=== PATIENT | male | born 1985 | race Caucasian/White ===

== ENCOUNTER 2016-07-14 21:12 | Inpatient (IN) | payer MEDICAID, OTHER ==
[~2016-07-14] VITALS: Ht 172.7 cm; Wt 75.6 kg
[~2016-07-14 21:12] MED LIST: DIVA500T52 PO; QUET50XR PO
[2016-07-14] MEDS ORDERED: OLANZapine 5 MG RAPDIS TABLET PO PRN (21:30)
[2016-07-14 21:59] VITALS: BP 120/67
[2016-07-14] MEDS ORDERED: INFLUENZA VIRUS VACCINE QVS 2016-17 (3YR+)/PF 60 MCG/0.5 ML SYRINGE IM ONE (22:00)
[2016-07-14] MEDS ORDERED: -PHARMACY VACCINE NOTE- MISC ONE ×2 (22:00)
[2016-07-14 22:07] VITALS: BP 106/62
[2016-07-14] MEDS: LORazepam 2 MG TABLET PO PRN (22:35)
[2016-07-14] MEDS: ZOLPIDEM TARTRATE 10 MG TABLET PO PRN (22:35)
[2016-07-15 07:19] VITALS: BP 120/67
[2016-07-15 08:03] VITALS: BP 105/60
[2016-07-15 08:20] LABS: BASOPHILS % (AUTO) 0.4 % (0.0-2.0); EOSINOPHILS % (AUTO) 1.5 % (1.0-6.0); HEMATOCRIT 38.2 % (41-53); HEMOGLOBIN 13.4 g/dL (13.5-17.5); LYMPHOCYTES # (AUTO) 2.7 K/uL (1.0-4.8); LYMPHOCYTES % (AUTO) 42.9 % (22.0-44.0); MEAN CORPUSCULAR HEMOGLOBIN 30.7 pg (26.0-34.0); MEAN CORPUSCULAR HGB CONC 35.2 G/dL (31.0-37.0); MEAN CORPUSCULAR VOLUME 87 fL (80-100); MONOCYTES # (AUTO) 0.7 K/uL (0.1-1.0); MONOCYTES % (AUTO) 10.6 % (2.0-9.0); NEUTROPHILS # (AUTO) 2.8 K/uL (1.8-7.7); NEUTROPHILS % (AUTO) 44.6 % (40.0-70.0); PLATELET COUNT (AUTO) 202 K/uL (150-450); RED BLOOD CELL COUNT(AUTO) 4.38 MIL/uL (4.50-5.90); RED CELL DISTRIBUTION WIDTH 12.9 % (11.5-14.5); WHITE BLOOD COUNT (AUTO) 6.3 K/uL (4.5-11.0)
[2016-07-15] MEDS: BENZTROPINE MESYLATE 2 MG TABLET PO SCH ×2 (08:50→17:14)
[2016-07-15] MEDS: LORazepam 2 MG TABLET PO PRN ×2 (08:50→17:14)
[2016-07-15] MEDS: DIVALPROEX SODIUM 500 MG ER TABLET PO SCH ×2 (08:50→17:14)
[2016-07-15 09:16] LABS: ALANINE AMINOTRANSFERASE 39 U/L (12-78); ALBUMIN 3.2 g/dL (3.4-5.0); ANION GAP 6 mmol/L (8-16); ASPARTATE AMINOTRANSFERASE 17 U/L (15-37); BILIRUBIN,TOTAL 0.4 mg/dL (0.1-1.0); CALCIUM, TOTAL 8.6 mg/dL (8.8-10.5); CARBON DIOXIDE 30 mmol/L (22-29); CHLORIDE 105 mmol/L (98-107); CHOL/HDL RATIO 2.9 (4.2-7.3); CREATININE 0.76 mg/dL (0.60-1.30); GLOMERULAR FILTR. RATE CALC > 60 mL/min (>60); POTASSIUM 3.8 mmol/L (3.5-5.1); SODIUM SERUM 141 mmol/L (136-145); THYROID STIMULATING HORMONE 2.66 uIU/mL (0.36-3.74); TOTAL PROTEIN, SERUM 6.6 g/dL (6.4-8.2); UREA NITROGEN, BLOOD 10 mg/dL (7-18)
[2016-07-15] MEDS ORDERED: ACETAMINOPHEN 325 MG TABLET PO PRN (13:15)
[2016-07-15] MEDS ORDERED: TUBERCULIN, PURIFIED PROTEIN DERIVATIVE 5 TU/0.1 ML SYG ID ONE (13:15)
[2016-07-15] MEDS ORDERED: GuaiFENesin/D-METHORPHAN [SUGAR-FREE] 200-20MG/10 ML SYRUP UDCUP PO PRN (13:15)
[2016-07-15] MEDS ORDERED: HydrOXYzine PAMOATE 50 MG CAPSULE PO PRN (13:15)
[2016-07-15] MEDS ORDERED: PROMETHAZINE HCL 25 MG TABLET PO PRN (13:15)
[2016-07-15] MEDS ORDERED: MAG HYDROX/AL HYDROX/SIMETH ES 30 ML SUSPENSION UDCUP PO PRN (13:15)
[2016-07-15] MEDS ORDERED: LOPERAMIDE HCL 2 MG CAPSULE PO PRN (13:15)
[2016-07-15] MEDS ORDERED: MAGNESIUM HYDROXIDE SUSPENSION 30 ML UDCUP PO PRN (13:15)
[2016-07-15 16:07] VITALS: BP 122/73
[2016-07-15] MEDS: THIAMINE HCL 100 MG TABLET PO SCH (17:14)
[2016-07-15] MEDS: OLANZapine 10 MG TABLET PO SCH (20:22)
[2016-07-15] MEDS: ZOLPIDEM TARTRATE 10 MG TABLET PO PRN (20:22)
[2016-07-16 00:36] VITALS: BP 103/60
[2016-07-16 08:03] VITALS: BP 116/66
[2016-07-16] MEDS: NALTREXONE HCL 50 MG TABLET PO SCH (08:37)
[2016-07-16] MEDS: THIAMINE HCL 100 MG TABLET PO SCH ×2 (08:37→17:09)
[2016-07-16] MEDS: BENZTROPINE MESYLATE 2 MG TABLET PO SCH ×2 (08:37→17:09)
[2016-07-16] MEDS: FOLIC ACID 1 MG TABLET PO SCH (08:37)
[2016-07-16] MEDS: DIVALPROEX SODIUM 500 MG ER TABLET PO SCH ×2 (08:37→17:09)
[2016-07-16] MEDS: MULTIVITAMINS WITH MINERALS, THERAPEUTIC TABLET PO SCH (08:37)
[2016-07-16] MEDS ORDERED: BENZ2TAB10 PO (11:17)
[2016-07-16] MEDS ORDERED: DIVA500T69 PO (11:17)
[2016-07-16] MEDS ORDERED: NALT50 PO (11:17)
[2016-07-16] MEDS ORDERED: OLAN10TA20 PO (11:17)
[2016-07-16 16:06] VITALS: BP 112/70
[2016-07-16] MEDS: LORazepam 2 MG TABLET PO PRN (17:09)
[2016-07-16] MEDS: ZOLPIDEM TARTRATE 10 MG TABLET PO PRN (20:34)
[2016-07-16] MEDS: OLANZapine 10 MG TABLET PO SCH (20:34)
[2016-07-17 00:10] VITALS: BP 119/75
[2016-07-17] MEDS: LORazepam 2 MG TABLET PO PRN (00:11)
[2016-07-17 08:04] VITALS: BP 124/73
[2016-07-17] MEDS: FOLIC ACID 1 MG TABLET PO SCH (08:40)
[2016-07-17] MEDS: BENZTROPINE MESYLATE 2 MG TABLET PO SCH (08:40)
[2016-07-17] MEDS: THIAMINE HCL 100 MG TABLET PO SCH (08:40)
[2016-07-17] MEDS: NALTREXONE HCL 50 MG TABLET PO SCH (08:40)
[2016-07-17] MEDS: DIVALPROEX SODIUM 500 MG ER TABLET PO SCH (08:40)
[2016-07-17] MEDS: MULTIVITAMINS WITH MINERALS, THERAPEUTIC TABLET PO SCH (08:40)
== END 2016-07-17 15:00 | disposition home or self-care (01) | DRG 750 ==
LOC: B3A 21:34 → EDSTATUS 21:47 → B3A 22:08
PROVIDERS: ADMIT Psychiatry & Neurology Psychiatry; ATTEND Psychiatry & Neurology Psychiatry
PROC: 3E0234Z Introduction of Serum, Toxoid and Vaccine into Muscle, Percutaneous Approach (ICD-10-PCS; principal; 2016-07-15)
DX: F20.0 Paranoid schizophrenia (principal); R45.851 Suicidal ideations; J44.9 Chronic obstructive pulmonary disease, unspecified; I10 Essential (primary) hypertension; D64.9 Anemia, unspecified; F17.210 Nicotine dependence, cigarettes, uncomplicated; F15.90 Other stimulant use, unspecified, uncomplicated; Z90.49 Acquired absence of other specified parts of digestive tract; Z79.899 Other long term (current) drug therapy; Z91.19 Patient's noncompliance with other medical treatment and regimen; Z23 Encounter for immunization
CPT/HCPCS: 83036; 84439; 84443; 87081; 90471

== ENCOUNTER 2016-11-24 20:10 | Inpatient (IN) | payer MEDICAID ==
[~2016-11-24] VITALS: Ht 172.7 cm; Wt 69.2 kg
[~2016-11-24 20:10] MED LIST changes: +BENZ2TAB10 PO; -DIVA500T52 PO; +DIVA500T69 PO; +NALT50 PO; +OLAN10TA20 PO; -QUET50XR PO
[2016-11-24 20:54] LABS: BASOPHILS % (AUTO) 0.3 % (0.0-2.0); EOSINOPHILS % (AUTO) 1.1 % (1.0-6.0); HEMATOCRIT 39.8 % (41-53); HEMOGLOBIN 13.4 g/dL (13.5-17.5); LYMPHOCYTES % (AUTO) 31.8 % (22.0-44.0); MEAN CORPUSCULAR HEMOGLOBIN 29.8 pg (26.0-34.0); MEAN CORPUSCULAR HGB CONC 33.6 G/dL (31.0-37.0); MEAN CORPUSCULAR VOLUME 89 fL (80-100); MONOCYTES # (AUTO) 0.6 K/uL (0.1-1.0); MONOCYTES % (AUTO) 9.2 % (2.0-9.0); NEUTROPHILS # (AUTO) 3.6 K/uL (1.8-7.7); NEUTROPHILS % (AUTO) 57.6 % (40.0-70.0); PLATELET COUNT (AUTO) 199 K/uL (150-450); RED BLOOD CELL COUNT(AUTO) 4.48 MIL/uL (4.50-5.90); RED CELL DISTRIBUTION WIDTH 13.2 % (11.5-14.5); WHITE BLOOD COUNT (AUTO) 6.3 K/uL (4.5-11.0)
[2016-11-24 21:02] LABS: ANION GAP 7 mmol/L (8-16); CALCIUM, TOTAL 8.3 mg/dL (8.8-10.5); CARBON DIOXIDE 26 mmol/L (22-29); CHLORIDE 103 mmol/L (98-107); CREATININE 0.85 mg/dL (0.60-1.30); GLOMERULAR FILTR. RATE CALC > 60 mL/min (>60); POTASSIUM 3.4 mmol/L (3.5-5.1); SODIUM SERUM 136 mmol/L (136-145); UREA NITROGEN, BLOOD 13 mg/dL (7-18)
[2016-11-24 21:08] LABS: ALANINE AMINOTRANSFERASE 27 U/L (12-78); ALBUMIN 3.8 g/dL (3.4-5.0); ASPARTATE AMINOTRANSFERASE 16 U/L (15-37); BILIRUBIN,TOTAL 0.5 mg/dL (0.1-1.0); TOTAL PROTEIN, SERUM 7.2 g/dL (6.4-8.2); VALPROIC ACID 30 mcg/mL (50-100)
[2016-11-24] MEDS ORDERED: HALOPERIDOL 5 MG TABLET PO ONE (21:30)
[2016-11-24] MEDS ORDERED: LORazepam 2 MG TABLET PO ONE (21:30)
[2016-11-25 00:01] VITALS: BP 110/61
[2016-11-25] MEDS: ZOLPIDEM TARTRATE 10 MG TABLET PO PRN ×2 (00:01→19:57)
[2016-11-25] MEDS ORDERED: -PHARMACY VACCINE NOTE- MISC ONE ×2 (00:15)
[2016-11-25] MEDS: HALOPERIDOL 5 MG TABLET PO PRN (08:09)
[2016-11-25] MEDS: LORazepam 2 MG TABLET PO PRN (08:09)
[2016-11-25] MEDS ORDERED: POTASSIUM CHLORIDE 20 MEQ ER TABLET PO ONE (08:30)
[2016-11-25 08:59] VITALS: BP 101/56
[2016-11-25] MEDS: MULTIVITAMINS WITH IRON TABLET PO SCH (09:05)
[2016-11-25] MEDS: NICOTINE 21 MG/24 HOUR PATCH TD SCH (09:05)
[2016-11-25 16:04] VITALS: BP 112/68
[2016-11-25] MEDS: OLANZapine 10 MG TABLET PO SCH (19:58)
[2016-11-26 07:31] VITALS: BP 108/61
[2016-11-26 08:02] VITALS: BP 109/64
[2016-11-26 09:21] LABS: CHOL/HDL RATIO 3.2 (4.2-7.3)
[2016-11-26] MEDS: MULTIVITAMINS WITH IRON TABLET PO SCH (09:34)
[2016-11-26] MEDS: NICOTINE 21 MG/24 HOUR PATCH TD SCH (09:35)
[2016-11-26] MEDS: DIVALPROEX SODIUM 500 MG ER TABLET PO SCH ×2 (09:35→17:05)
[2016-11-26 16:00] VITALS: BP 125/71
[2016-11-26] MEDS: LORazepam 2 MG TABLET PO PRN (19:09)
[2016-11-26] MEDS: HALOPERIDOL 5 MG TABLET PO PRN (19:09)
[2016-11-26] MEDS: ZOLPIDEM TARTRATE 10 MG TABLET PO PRN (20:40)
[2016-11-26] MEDS: OLANZapine 10 MG TABLET PO SCH (20:40)
[2016-11-27 08:31] VITALS: BP 105/67
[2016-11-27] MEDS: MULTIVITAMINS WITH IRON TABLET PO SCH (08:32)
[2016-11-27] MEDS: DIVALPROEX SODIUM 500 MG ER TABLET PO SCH ×2 (08:32→16:17)
[2016-11-27] MEDS: NICOTINE 21 MG/24 HOUR PATCH TD SCH (08:33)
[2016-11-27] MEDS: LORazepam 2 MG TABLET PO PRN (08:34)
[2016-11-27 16:00] VITALS: BP 112/65
== END 2016-11-27 19:20 | disposition home or self-care (01) | DRG 750 ==
LOC: EMS 20:12 → B3A 21:45
PROVIDERS: ADMIT Psychiatry & Neurology Psychiatry; ATTEND Psychiatry & Neurology Psychiatry
DX: F25.9 Schizoaffective disorder, unspecified (principal); R45.850 Homicidal ideations
CPT/HCPCS: 99285; G0480

== ENCOUNTER 2017-09-29 21:00 | Emergency (ER) | payer MEDICAID, OTHER ==
[~2017-09-29] VITALS: Ht 175.3 cm; Wt 77.0 kg
[~2017-09-29 21:00] MED LIST changes: -BENZ2TAB10 PO; -NALT50 PO
[2017-09-29] MEDS ORDERED: BENZ1TAB10 PO (21:38)
[2017-09-29] MEDS ORDERED: PROP10TA73 PO (21:38)
[2017-09-29 21:43] LABS: BASOPHILS % (AUTO) 0.2 % (0.0-2.0); EOSINOPHILS % (AUTO) 2.7 % (1.0-6.0); HEMATOCRIT 40.2 % (41-53); HEMOGLOBIN 14.2 g/dL (13.5-17.5); LYMPHOCYTES # (AUTO) 3.1 K/uL (1.0-4.8); LYMPHOCYTES % (AUTO) 46.6 % (22.0-44.0); MEAN CORPUSCULAR HEMOGLOBIN 30.6 pg (26.0-34.0); MEAN CORPUSCULAR HGB CONC 35.4 G/dL (31.0-37.0); MEAN CORPUSCULAR VOLUME 86 fL (80-100); MONOCYTES # (AUTO) 0.7 K/uL (0.1-1.0); NEUTROPHILS # (AUTO) 2.6 K/uL (1.8-7.7); NEUTROPHILS % (AUTO) 39.5 % (40.0-70.0); PLATELET COUNT (AUTO) 226 K/uL (150-450); RED BLOOD CELL COUNT(AUTO) 4.66 MIL/uL (4.50-5.90); RED CELL DISTRIBUTION WIDTH 13.3 % (11.5-14.5)
[2017-09-29 21:50] LABS: AMPHET/METH SCREEN,URINE NEGATIVE (NEGATIVE); BARBITURATE SCREEN, URINE NEGATIVE (NEGATIVE); BENZODIAZEPINES SCREEN,URINE NEGATIVE (NEGATIVE); CANNABINOID SCREEN,URINE NEGATIVE (NEGATIVE); COCAINE SCREEN,URINE NEGATIVE (NEGATIVE); METHADONE SCREEN, URINE NEGATIVE (NEGATIVE); OPIATE SCREEN,URINE NEGATIVE (NEGATIVE)
[2017-09-29 21:51] LABS: ANION GAP 8 mmol/L (8-16); CALCIUM, TOTAL 8.6 mg/dL (8.8-10.5); CARBON DIOXIDE 30 mmol/L (22-29); CHLORIDE 101 mmol/L (98-107); CREATININE 0.89 mg/dL (0.60-1.30); GLOMERULAR FILTR. RATE CALC > 60 mL/min (>60); GLUCOSE,RANDOM 94 mg/dL (70-110); POTASSIUM 3.7 mmol/L (3.5-5.1); SODIUM SERUM 139 mmol/L (136-145); UREA NITROGEN, BLOOD 13 mg/dL (7-18)
[2017-09-29 21:55] LABS: PHENCYCLIDINE SCREEN,URINE NEGATIVE (NEGATIVE)
[2017-09-29 21:57] LABS: ALANINE AMINOTRANSFERASE 27 U/L (12-78); ALBUMIN 3.9 g/dL (3.4-5.0); ALKALINE PHOSPHATASE 64 U/L (46-116); ASPARTATE AMINOTRANSFERASE 13 U/L (15-37); BILIRUBIN,TOTAL 0.3 mg/dL (0.1-1.0); TOTAL PROTEIN, SERUM 7.6 g/dL (6.4-8.2); VALPROIC ACID 68 mcg/mL (50-100)
[2017-09-30] MEDS ORDERED: DIVALPROEX SODIUM 250 MG DR TABLET PO ONE
[2017-09-30] MEDS ORDERED: OLANZapine 5 MG TABLET PO ONE
[2017-09-30 01:05] VITALS: BP 112/66
== END 2017-09-30 01:13 | disposition home or self-care (01) ==
LOC: EMS 21:01
DX: F20.9 Schizophrenia, unspecified (principal); R44.0 Auditory hallucinations; J45.909 Unspecified asthma, uncomplicated; I11.0 Hypertensive heart disease with heart failure; I50.9 Heart failure, unspecified; I25.2 Old myocardial infarction; F17.210 Nicotine dependence, cigarettes, uncomplicated
CPT/HCPCS: 36415; 80053; 80164; 80307; 85025; 99285; G0480

== ENCOUNTER 2018-04-08 14:02 | Emergency (ER) | payer OTHER ==
[~2018-04-08] VITALS: Ht 175.3 cm; Wt 79.5 kg
[~2018-04-08 14:02] MED LIST changes: +BENZ1TAB10 PO; +PROP10TA73 PO
[2018-04-08] MEDS ORDERED: DIVA-78 PO (14:39)
[2018-04-08] MEDS ORDERED: RISPC25 IM (14:39)
[2018-04-08 15:15] VITALS: BP 122/62
[2018-04-08 16:12] LABS: AMPHET/METH SCREEN,URINE NEGATIVE (NEGATIVE); BARBITURATE SCREEN, URINE NEGATIVE (NEGATIVE); BENZODIAZEPINES SCREEN,URINE NEGATIVE (NEGATIVE); CANNABINOID SCREEN,URINE NEGATIVE (NEGATIVE); COCAINE SCREEN,URINE NEGATIVE (NEGATIVE); METHADONE SCREEN, URINE NEGATIVE (NEGATIVE); OPIATE SCREEN,URINE NEGATIVE (NEGATIVE)
[2018-04-08 16:12] LABS: BASOPHILS % (AUTO) 0.5 % (0.0-2.0); EOSINOPHILS % (AUTO) 1.3 % (1.0-6.0); HEMOGLOBIN 14.8 g/dL (13.5-17.5); LYMPHOCYTES # (AUTO) 2.4 K/uL (1.0-4.8); LYMPHOCYTES % (AUTO) 36.9 % (22.0-44.0); MEAN CORPUSCULAR HEMOGLOBIN 31.7 pg (26.0-34.0); MEAN CORPUSCULAR HGB CONC 36.1 G/dL (31.0-37.0); MEAN CORPUSCULAR VOLUME 88 fL (80-100); MONOCYTES # (AUTO) 0.6 K/uL (0.1-1.0); MONOCYTES % (AUTO) 9.8 % (2.0-9.0); NEUTROPHILS # (AUTO) 3.3 K/uL (1.8-7.7); NEUTROPHILS % (AUTO) 51.5 % (40.0-70.0); PLATELET COUNT (AUTO) 215 K/uL (150-450); RED BLOOD CELL COUNT(AUTO) 4.67 MIL/uL (4.50-5.90); RED CELL DISTRIBUTION WIDTH 13.2 % (11.5-14.5)
[2018-04-08 16:18] LABS: PHENCYCLIDINE SCREEN,URINE NEGATIVE (NEGATIVE)
[2018-04-08 16:24] LABS: ANION GAP 5 mmol/L (8-16); CALCIUM, TOTAL 8.5 mg/dL (8.8-10.5); CARBON DIOXIDE 30 mmol/L (22-29); CHLORIDE 103 mmol/L (98-107); CREATININE 0.86 mg/dL (0.60-1.30); GLOMERULAR FILTR. RATE CALC > 60 mL/min (>60); GLUCOSE,RANDOM 97 mg/dL (70-110); SODIUM SERUM 138 mmol/L (136-145); UREA NITROGEN, BLOOD 12 mg/dL (7-18)
[2018-04-08 16:30] LABS: ALANINE AMINOTRANSFERASE 33 U/L (12-78); ALBUMIN 3.7 g/dL (3.4-5.0); ALKALINE PHOSPHATASE 69 U/L (46-116); ASPARTATE AMINOTRANSFERASE 21 U/L (15-37); BILIRUBIN,TOTAL 0.5 mg/dL (0.1-1.0); TOTAL PROTEIN, SERUM 7.1 g/dL (6.4-8.2); VALPROIC ACID 30 mcg/mL (50-100)
== END 2018-04-08 18:06 | disposition home or self-care (01) ==
LOC: EMS 14:04
DX: F20.0 Paranoid schizophrenia (principal); J45.909 Unspecified asthma, uncomplicated; I11.0 Hypertensive heart disease with heart failure; I50.9 Heart failure, unspecified; I25.2 Old myocardial infarction; F31.9 Bipolar disorder, unspecified; F17.210 Nicotine dependence, cigarettes, uncomplicated; Z90.49 Acquired absence of other specified parts of digestive tract; Z79.899 Other long term (current) drug therapy
CPT/HCPCS: 36415; 80053; 80164; 80307; 85025; 99285; 99406; G0480

== ENCOUNTER 2018-07-08 20:20 | Emergency (ER) | payer OTHER ==
[~2018-07-08] VITALS: Ht 172.7 cm; Wt 86.4 kg
[~2018-07-08 20:20] MED LIST changes: +DIVA-78 PO; -DIVA500T69 PO; -OLAN10TA20 PO; -PROP10TA73 PO; +RISPC25 IM
[2018-07-08 21:34] LABS: BASOPHILS % (AUTO) 0.6 % (0.0-2.0); EOSINOPHILS % (AUTO) 2.1 % (1.0-6.0); HEMATOCRIT 43.5 % (41-53); HEMOGLOBIN 15.7 g/dL (13.5-17.5); LYMPHOCYTES # (AUTO) 3.6 K/uL (1.0-4.8); LYMPHOCYTES % (AUTO) 47.2 % (22.0-44.0); MEAN CORPUSCULAR HEMOGLOBIN 31.2 pg (26.0-34.0); MEAN CORPUSCULAR VOLUME 87 fL (80-100); MONOCYTES # (AUTO) 0.8 K/uL (0.1-1.0); MONOCYTES % (AUTO) 10.2 % (2.0-9.0); NEUTROPHILS % (AUTO) 39.9 % (40.0-70.0); PLATELET COUNT (AUTO) 219 K/uL (150-450); RED BLOOD CELL COUNT(AUTO) 5.02 MIL/uL (4.50-5.90); RED CELL DISTRIBUTION WIDTH 13.3 % (11.5-14.5)
[2018-07-08 21:45] LABS: ANION GAP 3 mmol/L (8-16); CALCIUM, TOTAL 9.1 mg/dL (8.8-10.5); CARBON DIOXIDE 33 mmol/L (22-29); CHLORIDE 102 mmol/L (98-107); CREATININE 0.91 mg/dL (0.60-1.30); GLOMERULAR FILTR. RATE CALC > 60 mL/min (>60); GLUCOSE,RANDOM 100 mg/dL (70-110); POTASSIUM 4.3 mmol/L (3.5-5.1); SODIUM SERUM 138 mmol/L (136-145); UREA NITROGEN, BLOOD 12 mg/dL (7-18)
[2018-07-08 21:51] LABS: ALANINE AMINOTRANSFERASE 46 U/L (12-78); ALBUMIN 3.8 g/dL (3.4-5.0); ALKALINE PHOSPHATASE 67 U/L (46-116); ASPARTATE AMINOTRANSFERASE 20 U/L (15-37); BILIRUBIN,TOTAL 0.3 mg/dL (0.1-1.0); TOTAL PROTEIN, SERUM 7.5 g/dL (6.4-8.2); VALPROIC ACID 75 mcg/mL (50-100)
[2018-07-08 22:50] VITALS: BP 121/79
== END 2018-07-08 22:53 | disposition home or self-care (01) ==
LOC: EMS 20:21
DX: R44.0 Auditory hallucinations (principal); F32.9 Major depressive disorder, single episode, unspecified; J45.909 Unspecified asthma, uncomplicated; F31.9 Bipolar disorder, unspecified; I11.0 Hypertensive heart disease with heart failure; I50.9 Heart failure, unspecified; I25.2 Old myocardial infarction; F20.9 Schizophrenia, unspecified; E03.9 Hypothyroidism, unspecified; F17.210 Nicotine dependence, cigarettes, uncomplicated
CPT/HCPCS: 36415; 80053; 80164; 85025; 99285; G0480

== ENCOUNTER 2024-08-17 19:14 | Inpatient (IN) | payer MEDICAID ==
[~2024-08-17] VITALS: Ht 172.7 cm; Wt 89.6 kg
[~2024-08-17 19:14] MED LIST changes: +BENZ-247 PO; -BENZ1TAB10 PO; +DIVA-112 PO; -DIVA-78 PO
[2024-08-17] MEDS ORDERED: INFLUENZA VIRUS VACCINE TVS (6MO+) 2024-25/PF 45 MCG/0.5 ML SYRINGE IM. ONE (20:30)
[2024-08-17] MEDS ORDERED: PNEUMOCOCCAL VACCINE POLYVALENT 0.5 ML SYRINGE [PPSV23] IM. ONE (20:30)
[2024-08-17 20:35] LABS: GLUCOMETER DEV NAME(LOC) POC.BV; POC SARS-COV2 AG, FIA NEGATIVE (NEGATIVE)
[2024-08-17] MEDS: ZOLPIDEM TARTRATE 10 MG TABLET PO PRN (21:27)
[2024-08-17 22:52] VITALS: BP 119/72; PULSE 87; RESP 18; TEMP 97.1; O2SAT 100
[2024-08-18] MEDS ORDERED: MAG HYDROX/ALUMINUM HYD/SIMETH ES 30 ML SUSPENSION UDCUP PO PRN (07:00)
[2024-08-18] MEDS ORDERED: MAGNESIUM HYDROXIDE SUSPENSION 30 ML UDCUP PO PRN (07:00)
[2024-08-18] MEDS ORDERED: BACITRACIN 28 GM OINTMENT TP PRN (07:00)
[2024-08-18] MEDS ORDERED: ONDANSETRON 4 MG TABLET PO PRN (07:00)
[2024-08-18] MEDS ORDERED: BENZOCAINE/MENTHOL [CEPACOL] LOZENGE PO PRN (07:00)
[2024-08-18] MEDS ORDERED: DOCUSATE SODIUM 100 MG CAPSULE PO PRN (07:00)
[2024-08-18] MEDS ORDERED: OMEPRAZOLE 20 MG CAPSULE PO PRN (07:00)
[2024-08-18] MEDS ORDERED: IBUPROFEN 600 MG TABLET PO PRN (07:00)
[2024-08-18] MEDS ORDERED: PETROLATUM,WHITE 28 GM JELLY TP PRN (07:00)
[2024-08-18] MEDS ORDERED: CloNIDine HCL 0.1 MG TABLET PO PRN (07:00)
[2024-08-18] MEDS ORDERED: ALBUTEROL SULFATE HFA 90 MCG/PUFF 8 GM INHALER IH PRN (07:00)
[2024-08-18] MEDS ORDERED: ACETAMINOPHEN 325 MG TABLET PO PRN (07:00)
[2024-08-18] MEDS ORDERED: LOPERAMIDE HCL 2 MG CAPSULE PO PRN (07:00)
[2024-08-18 08:18] VITALS: BP 100/60; PULSE 88; RESP 17; TEMP 98; O2SAT 98
[2024-08-18 08:36] LABS: BASOPHILS % (AUTO) 0.2 % (0.0-2.0); EOSINOPHILS % (AUTO) 2.2 % (1.0-6.0); HEMATOCRIT 40.5 % (41-53); HEMOGLOBIN 14.1 g/dL (13.5-17.5); LYMPHOCYTES # (AUTO) 2.6 K/uL (1.0-4.8); LYMPHOCYTES % (AUTO) 44.7 % (22.0-44.0); MEAN CORPUSCULAR HEMOGLOBIN 30.9 pg (26.0-34.0); MEAN CORPUSCULAR HGB CONC 34.9 G/dL (31.0-37.0); MEAN CORPUSCULAR VOLUME 89 fL (80-100); MONOCYTES # (AUTO) 0.6 K/uL (0.1-1.0); MONOCYTES % (AUTO) 10.2 % (2.0-9.0); NEUTROPHILS # (AUTO) 2.5 K/uL (1.8-7.7); NEUTROPHILS % (AUTO) 42.7 % (40.0-70.0); PLATELET COUNT (AUTO) 198 K/uL (150-450); RED BLOOD CELL COUNT(AUTO) 4.57 MIL/uL (4.50-5.90); RED CELL DISTRIBUTION WIDTH 12.8 % (11.5-14.5); WHITE BLOOD COUNT (AUTO) 5.9 K/uL (4.5-11.0)
[2024-08-18 08:50] LABS: HEMOGLOBIN A1C 4.6 % (3.8-5.6)
[2024-08-18 09:03] LABS: ALANINE AMINOTRANSFERASE 27 U/L (12-78); ALKALINE PHOSPHATASE 62 U/L (46-116); ANION GAP 8 mmol/L (8-16); ASPARTATE AMINOTRANSFERASE 16 U/L (15-37); BILIRUBIN,TOTAL 0.4 mg/dL (0.1-1.0); CALCIUM, TOTAL 8.7 mg/dL (8.8-10.5); CARBON DIOXIDE 27 mmol/L (22-29); CHLORIDE 105 mmol/L (98-107); CHOL/HDL RATIO 3.6 (4.2-7.3); CHOLESTEROL 133 mg/dL (131-200); GLOMERULAR FILTR. RATE CALC > 60 mL/min (>60); GLUCOSE,RANDOM 90 mg/dL (70-110); HDL CHOLESTEROL 37 mg/dL (40-60); LDL CHOL (CALC.) 72 mg/dL (0-130); POTASSIUM 4.2 mmol/L (3.5-5.1); SODIUM SERUM 140 mmol/L (136-145); TOTAL PROTEIN, SERUM 6.3 g/dL (6.4-8.2); TRIGLYCERIDES 120 mg/dL (15-150); UREA NITROGEN, BLOOD 12 mg/dL (7-18)
[2024-08-18 09:52] LABS: FREE T4 (FREE THYROXINE) 0.78 ng/dL (0.76-1.46); THYROID STIMULATING HORMONE 1.91 uIU/mL (0.36-3.74)
[2024-08-18] MEDS: LORazepam 2 MG TABLET PO PRN (13:30)
[2024-08-18] MEDS: HALOPERIDOL 5 MG TABLET PO PRN (13:30)
[2024-08-18] MEDS ORDERED: HydrOXYzine HCL 25 MG TABLET PO PRN (14:00)
[2024-08-18 21:31] VITALS: BP 128/76; PULSE 90; RESP 18; TEMP 97.7; O2SAT 98
[2024-08-18] MEDS: BENZTROPINE MESYLATE 1 MG TABLET PO SCH (21:40)
[2024-08-18] MEDS: DIVALPROEX SODIUM 500 MG ER TABLET PO SCH (21:40)
[2024-08-19 08:05] VITALS: BP 126/77; PULSE 74; RESP 16; TEMP 97.7; O2SAT 98
[2024-08-19] MEDS: PALIPERIDONE 3 MG ER TABLET PO SCH (08:54)
[2024-08-19 09:16] LABS: ALCOHOL, URINE DRUG SCREEN NEGATIVE (NEGATIVE); AMPHET/METH SCREEN,URINE NEGATIVE (NEGATIVE); BARBITURATE SCREEN, URINE NEGATIVE (NEGATIVE); BENZODIAZEPINES SCREEN,URINE NEGATIVE (NEGATIVE); CANNABINOID SCREEN,URINE NEGATIVE (NEGATIVE); COCAINE SCREEN,URINE NEGATIVE (NEGATIVE); METHADONE SCREEN, URINE NEGATIVE (NEGATIVE); OPIATE SCREEN,URINE NEGATIVE (NEGATIVE); PHENCYCLIDINE SCREEN,URINE NEGATIVE (NEGATIVE)
[2024-08-19 09:32] LABS: APPEARANCE,URINE CLEAR (CLEAR); BILIRUBIN,URINE NEGATIVE (NEGATIVE); COLOR,URINE LIGHT YELLOW (YELLOW); GLUCOSE, URINE (UA) NEGATIVE (NEGATIVE); KETONES,URINE NEGATIVE (NEGATIVE); LEUKOCYTE ESTERASE ,URINE NEGATIVE (NEGATIVE); NITRATE,URINE NEGATIVE (NEGATIVE); OCCULT BLOOD,URINE NEGATIVE (NEGATIVE); PROTEIN,URINE NEGATIVE (NEGATIVE); SPECIFIC GRAVITIY, URINE 1.013 (1.003-1.030); UROBILINOGEN,URINE <=1.0 mg/dL (<=1.0)
== END 2024-08-19 12:49 | disposition home or self-care (01) | DRG 750 ==
LOC: B3A 20:25
PROVIDERS: ADMIT Psychiatry & Neurology Psychiatry; ATTEND Psychiatry & Neurology Psychiatry
DX: F25.9 Schizoaffective disorder, unspecified (principal); F19.10 Other psychoactive substance abuse, uncomplicated; F32.A Depression, unspecified; F41.0 Panic disorder [episodic paroxysmal anxiety]; Z20.822 Contact with and (suspected) exposure to COVID-19; G47.00 Insomnia, unspecified; I10 Essential (primary) hypertension; J44.9 Chronic obstructive pulmonary disease, unspecified; K21.9 Gastro-esophageal reflux disease without esophagitis; K59.00 Constipation, unspecified
CPT/HCPCS: 80053; 80061; 80307; 81003; 83036; 84439; 84443; 85025